=== PATIENT | male | born 1945 | race Caucasian/White ===

== ENCOUNTER 2018-11-25 09:43 | Outpatient (CLI) | payer MEDICARE, OTHER ==
--- NOTE | 2018-11-25 12:17 | CT ---
CT ABDOMEN WITH AND WITHOUT CONTRAST: CT PELVIS WITH AND WITHOUT CONTRAST: HISTORY: Prostate cancer. COMPARISON: None. FINDINGS: ABDOMEN: Dependent atelectasis changes. Heart size is normal. No pericardial effusion. The descen ding thoracic aorta and abdominal aorta have a normal caliber. No periaortic fat stranding. The portal vein is patent. Unremarkable gallbladder. The liver, spleen, pancreas, and adrenal glands have appropriate enhancement. Symmetric enhancement of the kidneys. No obstructive uropathy. Nonobstructing 2 mm calcification in the upper collecting system of the right kidney. Umbilical hernia containing mesenteric fat. No bowel herniation. No mesenteric mass, lymphadenopath y, free air, or free fluid. There are a few scattered nonspecific, nonenlarged mesenteric lymph node s. The gastric mucosa, duodenum, and small bowel loops have an overall normal caliber. Normal ileocecal junction. Normal caliber appendix. Contrasted fecal material in a nondistended, nondilated colon. No evidence of colon obstruction. On the delayed images, there are bilateral peripelvic cysts. There is symmetric excretion into the i ntrarenal and extrarenal collecting systems. The opacified intrarenal and extrarenal collecting syst ems do not demonstrate any filling defect. PELVIS: Mild prostatic hypertrophy. No pelvic mass, lymphadenopathy, free air, or free fluid. Cont rast opacifies the dependent portion of the urinary bladder. No obvious abnormality. No lytic or blastic lesions in the osseous structures. IMPRESSION: 1. Bilaterally, no evidence of obstructive uropathy. Bilateral pelvic cysts are noted. 2. There are a few scattered nonspecific, nonenlarged mesenteric lymph nodes. 3. No lytic or blastic lesions in the osseous structures. POS: [facility]
--- NOTE | 2018-11-25 16:05 | NM ---
WHOLE BODY BONE SCAN 11/25/18 HISTORY: Newly diagnosed prostate cancer. RADIOPHARMACEUTICAL: 33 millicuries technetium 99m labeled MDP, IV. VIEWS OBTAINED: Anterior posterior whole body. FINDINGS: There is mild increased uptake in the bilateral shoulders, knees, and feet in a degenerative pattern. There is a punctate focus of increased uptake seen overlying the expected location of the left ethmo idal air cells which may be related to sinus disease. There is also suggestion of area of increased u ptake overlying the region of the thyroid gland which is overall nonspecific. There is faint eccentri c increased uptake of radiotracer seen within the region of the cervical spine as well as in the late ral aspect of the lumbar spine which is also probably related to degenerative changes. There are prominent facet degenerative changes seen on the right at the L5-S1 level. This likely acco unts for finding on bone scan. No other areas of abnormal uptake of radiotracer seen throughout the visualized axillary and appendic ular skeleton. IMPRESSION: 1. No scintigraphic findings to suggest osseous metastatic disease. 2. Degenerative changes. 3. Probable sinus disease involving the left ethmoidal air cells. 4. Nonspecific uptake in the region of the thyroid gland. POS: [facility]
[2018-11-25] MEDS ORDERED: Iopamidol 370 76% 100 ML VIAL ONE (16:29)
== END 2018-11-25 09:44 | disposition home or self-care (01) ==
LOC: CT 09:43
PROVIDERS: ATTEND Urology
DX: C61 Malignant neoplasm of prostate (principal); N28.1 Cyst of kidney, acquired
CPT/HCPCS: 74178; 78306; 82565; A9503

== ENCOUNTER 2023-01-02 09:41 | Outpatient (CLI) | payer MEDICARE, OTHER ==
[2023-01-02 10:54] LABS: #Basophils 0.1 10x3/uL (0.0-0.2); #Eosinphils 0.2 10x3/uL (0.0-0.5); #Monocytes 0.3 10x3/uL (0.0-1.1); #Neutrophils 2.1 10x3/uL (1.5-8.4); %Basophils 1.3 % (0.0-2.0); %Eosinophils 4.1 % (0.0-6.0); %Monocytes 8.3 % (0.0-10.0); %Neutrophils 54.8 % (40.0-75.0); Hemoglobin 15.7 g/dL (13.5-17.5); Mean Corpuscular HGB CONC 33.5 g/dL (32.0-36.0); Mean Corpuscular Hemoglobin 30.3 pg (27.0-33.0); Mean Corpuscular Volume 90.4 fl (81.2-95.1); Mean Platelet Volume 8.5 fl (7.4-10.4); Platelet Count 188 10x3/uL (150-450); RBC Distribution Width 12.7 % (11.5-14.5); Red Blood Cell (RBC) Count 5.19 10x6/uL (4.32-5.72); White Blood Cell (WBC) Count 3.9 10x3/uL (3.5-10.5)
[2023-01-02 11:01] LABS: Anion Gap 11 mmol/L (10-20); BUN (Urea Nitrogen) 17 mg/dL (8.4-25.7); Calc. Creatinine Clearance 0 mL/min (70-130); Calcium 9.4 mg/dL (7.8-10.44); Carbon Dioxide 29 mmol/L (23-31); Chloride 106 mmol/L (98-107); Estimated GFR 76; Glucose 102 mg/dL (83-110); Sodium 142 mmol/L (136-145)
== END 2023-01-02 09:42 | disposition home or self-care (01) ==
LOC: LABBT 09:41
PROVIDERS: ATTEND Surgery
DX: Z01.818 Encounter for other preprocedural examination (principal); K40.90 Unilateral inguinal hernia, without obstruction or gangrene, not specified as recurrent
CPT/HCPCS: 80048; 85025; 93005; 93010

== ENCOUNTER 2023-01-07 07:06 | Day surgery (SDC) | payer MEDICARE, OTHER ==
[2023-01-03 10:41] VITALS: BMI 25.0
[2023-01-07] MEDS ORDERED: Bupivacaine PF 0.5% 30 ML VIAL ONE (09:37)
[2023-01-07] MEDS ORDERED: Bupivacaine/Epinephrine 0.25% 30 ML VIAL ONE (09:37)
[2023-01-07] MEDS ORDERED: Lidocaine 2% PF 5 ML VIAL ONE (09:38)
[2023-01-07] MEDS ORDERED: Sodium Chloride 0.9% 100 ML ONE (09:59)
[2023-01-07] MEDS ORDERED: CEFAZOLIN 2 GM VIAL ONE (09:59)
[2023-01-07] MEDS ORDERED: fentaNYL PF 100 MCG/2 ML SYRINGE ONE (10:00)
[2023-01-07] MEDS ORDERED: HYDROmorphone 2 MG/ML VIAL ONE (10:00)
[2023-01-07] MEDS ORDERED: Lidocaine 1% PF 5 ML VIAL ONE (10:09)
[2023-01-07] MEDS ORDERED: Dexamethasone 20 MG/5 ML VIAL ONE (10:09)
[2023-01-07] MEDS ORDERED: PROPOFOL 200 MG/20 ML VIAL ONE (10:09)
[2023-01-07] MEDS ORDERED: PHENYLEPHRINE-NS 100 MCG/ML 10 ML SYRINGE ONE (10:09)
[2023-01-07] MEDS ORDERED: Ondansetron PF 4 MG/2 ML Vial ONE (10:09)
== END 2023-01-07 12:39 | disposition home or self-care (01) ==
LOC: SDC 07:06
PROVIDERS: ATTEND Surgery
PROC: 0YU50JZ Supplement Right Inguinal Region with Synthetic Substitute, Open Approach (ICD-10-PCS; principal; 2023-01-07)
DX: K40.90 Unilateral inguinal hernia, without obstruction or gangrene, not specified as recurrent (principal); I10 Essential (primary) hypertension; E78.5 Hyperlipidemia, unspecified; I25.2 Old myocardial infarction; F03.90 Unspecified dementia, unspecified severity, without behavioral disturbance, psychotic disturbance, mood disturbance, and anxiety; Z85.46 Personal history of malignant neoplasm of prostate; Z87.891 Personal history of nicotine dependence; Z79.82 Long term (current) use of aspirin; Z79.899 Other long term (current) drug therapy; Z95.5 Presence of coronary angioplasty implant and graft
CPT/HCPCS: 49505; A4306; C1781; J1100; J1170; J2001; J2405; J2704; J3490; S0020